=== PATIENT | female | born 2000 | race Two or more races ===

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

== ENCOUNTER 2018-05-13 11:22 | Emergency (ER) | payer MEDICAID, OTHER ==
[~2018-05-13] VITALS: Ht 157.5 cm; Wt 95.3 kg
[~2018-05-13 11:22] MED LIST changes: +CLINDAMYCIN HC150 MG ORAL
[2018-05-13] MEDS ORDERED: NKM (11:37)
[2018-05-13 11:43] VITALS: BP 120/62
--- NOTE | 2018-05-13 11:44 | NUR ---
ED Nurse Note: Pt from c/o abd pain with N/V since this morning. Denies diarrhea or constipation. No othe rmedical hx Pt is AAO x x4, ambulatory with unlabored breathing. VSS.
--- NOTE | 2018-05-13 11:55 | NUR ---
ED Nurse Note: Dr Swanson at the bed side.
[2018-05-13] MEDS ORDERED: Lidocaine 2% Visc 15ml soln ORAL ONE (12:00)
[2018-05-13] MEDS ORDERED: Mylanta II UD 30ml ORAL ONE (12:00)
[2018-05-13] MEDS ORDERED: Dicyclomine HCl 10mg/5ml oral soln ORAL ONE (12:00)
[2018-05-13] MEDS ORDERED: RANITIDINE HCL150 MG ORAL (12:28)
[2018-05-13] MEDS ORDERED: ONDANSETRON ODT4 MG BC (12:28)
[2018-05-13 12:40] VITALS: BP 112/66
--- NOTE | 2018-05-13 12:40 | NUR ---
ER Nurse Note: Pt cleared for discharge by ER MD. DC instructions/prescription was gien and explained to pt and verbalized understanding of teachings. All medical devices such as ID band removed. Pt AAO x4, ambulatory and left with all personal belongings.
--- NOTE | 2018-05-13 14:14 | Emergency Room Report ---
History of Present Illness General Chief Complaint: Abdominal Pain Source: Patient Present Illness HPI 18-year-old female presents ED for evaluation. Patient complaining of abdominal pain with nausea and vomiting. Started this morning. Pain is epigastric, burning, 7 out of 10, nonradiating. Denies chest pain or shortness of breath. Denies any diarrhea. Denies fevers or chills. No other aggravating relieving factors. Denies any other associated symptoms Allergies: Coded Allergies: No Known Allergies (Unverified , 05/05/12) Patient History Past Medical History: none Past Surgical History: none Pertinent Family History: none Social History: Denies: smoking, alcohol use, drug use Last Menstrual Period: 04/24/18 Now: No Immunizations: UTD Reviewed Nursing Documentation: PMH: Agreed; PSxH: Agreed Nursing Documentation-PMH Past Medical History: No Stated History Review of Systems All Other Systems: negative except mentioned in HPI Physical Exam Vital Signs Date Time Temp Pulse Resp B/P (MAP) Pulse Ox O2 Delivery O2 Flow Rate FiO2 05/13/18 11:34 97.9 71 13 120/62 100 Room Air Sp02 EP Interpretation: reviewed, normal General Appearance: no apparent distress, alert, GCS 15, non-toxic Head: normocephalic Eyes: bilateral eye normal inspection, bilateral eye PERRL ENT: normal ENT inspection Neck: normal inspection Respiratory: chest non-tender, lungs clear, normal breath sounds, speaking full sentences Cardiovascular #1: regular rate, rhythm, no edema Gastrointestinal: normal bowel sounds, soft, non-distended, no guarding, no rebound, tenderness - epigastric Rectal: deferred Genitourinary: no CVA tenderness Musculoskeletal: normal inspection Neurologic: alert, oriented x3, responsive, motor strength/tone normal, sensory intact, speech normal Psychiatric: normal inspection Skin: normal inspection Lymphatic: normal inspection Medical Decision Making Diagnostic Impression: Primary Impression: Gastritis Qualified Codes: K29.00 - Acute gastritis without bleeding ER Course Hospital Course 18-year-old F presents to ED with epigastric pain with N/V. differential diagnosis: gastritis, SBO, cholecystits Clinical course Patient placed on stretcher. On park interpreter. After initial history, physical exam reveals female in no acute distress. There is some mild epigastric tenderness. No guarding or rebound. No active vomiting. Patient appears comfortable. Blood pressure okay. Vital stable. Discussed findings with patient. Father at bedside admits that patient eats spicy chips on regular basis Given Zofran IM here, given GI cocktail and Pepcid. Safe for discharge close outpatient follow-up. We'll provide referrals I feel this is a highly complex case requiring extensive working including EKG/ Rhythm strip, Xray/CT/US, Blood/urine lab work, repeat exams while in ED, and administration of strong opiates/narcotics for pain control, admission to hospital or close patient follow up. Diagnosis - gastritis Stable and discharged to home with prescriptions for Zantac, zofran. Followup with PMD. Return to ED if symptoms recur or worsen Last Vital Signs Date Time Temp Pulse Resp B/P (MAP) Pulse Ox O2 Delivery O2 Flow Rate FiO2 05/13/18 12:40 98.4 85 20 112/66 99 Room Air Status: improved Disposition: HOME, SELF-CARE Condition: Stable Scripts Ondansetron Odt* (ZOFRAN ODT*) 4 Mg Tab.rapdis 4 MG BC EVERY 8 HOURS, #10 TAB 0 Refills Prov: Kris Swanson MD 05/13/18 Ranitidine Hcl* (ZANTAC*) 150 Mg Tablet 150 MG ORAL TWICE A DAY, #30 TAB Prov: Kris Swanson MD 05/13/18 Patient Instructions: Gastritis, Adult, Lwgq-[id number] Kris Swanson MD May 13, 2018 14:14
== END 2018-05-13 12:40 | disposition home or self-care (01) ==
LOC: EMR 11:57
DX: K29.70 Gastritis, unspecified, without bleeding (principal)
CPT/HCPCS: 96372; 99283; J2405

== ENCOUNTER 2018-05-17 03:18 | Emergency (ER) | payer OTHER ==
[~2018-05-17] VITALS: Ht 157.5 cm; Wt 95.3 kg
[~2018-05-17 03:18] MED LIST changes: +NKM; +ONDANSETRON ODT4 MG BC; +RANITIDINE HCL150 MG ORAL
[2018-05-17 03:29] VITALS: BP 123/73
--- NOTE | 2018-05-17 03:31 | NUR ---
ED Nurse Note: pt walked in due to hives on most part of the body, started 0200. no active wounds noted. pt is alert and oriented times 4 with stable gait. pt S1, S2 notes and heart tones are within normal limts, pt lung sounds are clear on all qudrants with no respritory distress noted.
[2018-05-17] MEDS ORDERED: BENADRYL25 MG ORAL (03:36)
[2018-05-17] MEDS ORDERED: PREDNISONE20 MG ORAL (03:36)
--- NOTE | 2018-05-17 03:37 | Emergency Room Report ---
History of Present Illness General Chief Complaint: Allergic Reaction Source: Patient Present Illness HPI Is a 18-year-old female with no past medical history. She presents with chief complaint of allergic reaction. Unknown etiology. She woke up itching with a rash throughout her body. She was here several days ago and prescribe H2 mundo and Zofran. She had not taking this medicine for over 2 days now. Denies any fever chills denies any nausea vomiting. No new medication. No new food or soap or detergent. No respiratory issue. Allergies: Coded Allergies: No Known Allergies (Unverified , 05/05/12) Patient History Past Medical History: see triage record, old chart reviewed Past Surgical History: none Pertinent Family History: none Social History: Denies: smoking Last Menstrual Period: 04/24/2018 Now: No Immunizations: other Reviewed Nursing Documentation: PMH: Agreed; PSxH: Agreed Nursing Documentation-PMH Past Medical History: No Stated History Review of Systems Eye: Denies: eye pain, blurred vision ENT: Denies: ear pain, nose congestion, throat swelling Respiratory: Denies: cough, shortness of breath Cardiovascular: Denies: chest pain, palpitations Gastrointestinal: Denies: abdominal pain, diarrhea, nausea, vomiting Musculoskeletal: Denies: back pain, joint pain Skin: Reports: rash Neurological: Denies: headache, numbness Endocrine: Denies: increased thirst, increased urine Hematologic/Lymphatic: Denies: easy bruising All Other Systems: negative except mentioned in HPI Physical Exam Vital Signs Date Time Temp Pulse Resp B/P (MAP) Pulse Ox O2 Delivery O2 Flow Rate FiO2 05/17/18 03:22 98.1 99 16 123/73 Room Air 05/17/18 03:29 99 99 vitals normal Sp02 EP Interpretation: reviewed, normal General Appearance: well appearing, no apparent distress, alert Head: normocephalic, atraumatic Eyes: bilateral eye PERRL, bilateral eye EOMI ENT: hearing grossly normal, normal pharynx Neck: full range of motion, supple, no meningismus Respiratory: chest non-tender, lungs clear, normal breath sounds Cardiovascular #1: regular rate, rhythm, no murmur Gastrointestinal: normal bowel sounds, non tender, no mass, no organomegaly, no bruit, non-distended Musculoskeletal: back normal, gait/station normal, normal range of motion Neurologic: alert, oriented x3 Psychiatric: mood/affect normal Skin: warm/dry, other - Diffuse urticaria Medical Decision Making Diagnostic Impression: Primary Impression: Allergic reaction Qualified Codes: T78.40XA - Allergy, unspecified, initial encounter ER Course Patient with allergic reaction. Unknown etiology. Unlikely to be new medications because she hasn't taken it for 2 days. No respiratory issue. We' ll discharge home. Last Vital Signs Date Time Temp Pulse Resp B/P (MAP) Pulse Ox O2 Delivery O2 Flow Rate FiO2 05/17/18 03:29 99 16 Room Air 99 05/17/18 03:29 98.1 123/73 99 Status: improved Disposition: HOME, SELF-CARE Condition: Stable Scripts Prednisone* (PREDNISONE*) 20 Mg Tablet 40 MG ORAL DAILY, #6 TAB Prov: Vignesh Patel MD 05/17/18 Diphenhydramine Hcl* (BENADRYL*) 25 Mg Capsule 500 MG ORAL Q6H PRN for Itching, #30 CAP Prov: Vignesh Patel MD 05/17/18 Patient Instructions: Allergies Additional Instructions: Follow-up with your DrFeliciano in 2-3 days for recheck. Stop the new medications were reviewed received few days ago. Return if worse. Vignesh Patel MD May 17, 2018 03:37
[2018-05-17] MEDS ORDERED: Solu-MEDROL 125mg Inj IVP ONE (03:45)
[2018-05-17] MEDS ORDERED: DiphenhydrAMINE 50mg/ml Inj IVP ONE (03:45)
[2018-05-17 04:09] VITALS: BP 125/67
--- NOTE | 2018-05-17 04:10 | NUR ---
ER DISCHARGE NOTE: Patient is cleared to be discharged per ERMD, pt is aox4, on room air, with stable vital signs. pt was given dc and prescription instructions, pt was able to verbalize understanding, pt id band and iv site removed without complications. pt is able to ambulate with steady gait. pt took all belongings.
== END 2018-05-17 04:11 | disposition home or self-care (01) ==
LOC: EMR 03:39
DX: T78.40XA Allergy, unspecified, initial encounter (principal); X58.XXXA Exposure to other specified factors, initial encounter; R21 Rash and other nonspecific skin eruption
CPT/HCPCS: 96374; 96375; 99284; J1200; J2930

== ENCOUNTER 2018-08-04 21:31 | Emergency (ER) | payer OTHER ==
[~2018-08-04] VITALS: Ht 160 cm; Wt 99.8 kg
[~2018-08-04 21:31] MED LIST changes: +BENADRYL25 MG ORAL; +PREDNISONE20 MG ORAL
[2018-08-04 21:51] VITALS: BP 117/67
--- NOTE | 2018-08-04 21:51 | NUR ---
ED Nurse Note: Pt arrived ED from home. c/o headache 11/04 for 2 days. Pt is A/O X4, vital signs stable at this time, waiting for orders.
[2018-08-04] MEDS ORDERED: DiphenhydrAMINE 50mg/ml Inj IVP ONE (22:00)
[2018-08-04] MEDS ORDERED: Metoclopramide 10mg/2ml Inj IVP ONE (22:00)
[2018-08-04] MEDS ORDERED: Ketorolac 30mg Inj IV ONE (22:00)
--- NOTE | 2018-08-04 22:07 | NUR ---
ED Nurse Note: Meds given as ordered.
--- NOTE | 2018-08-04 22:09 | NUR ---
ED Nurse Note: Pt was sent down for CT of head.
--- NOTE | 2018-08-04 22:20 | NUR ---
ED Nurse Note: Pt returned from CT of head.
--- NOTE | 2018-08-04 22:22 | Diagnostic Imaging Report ---
EXAM: CT Head Without Intravenous Contrast CLINICAL HISTORY: PAIN TECHNIQUE: Axial computed tomography images of the head/brain without intravenous contrast. CTDI is 70.53 mGy and DLP is 1383 mGy-cm. One or more of the following dose reduction techniques were used: automated exposure control, adjustment of the mA and/or kV according to patient size, use of iterative reconstruction technique. COMPARISON: Noncontrast head CT May 05, 2012 FINDINGS: Brain: Unremarkable. No hemorrhage. No significant white matter disease. No edema. Ventricles: Unremarkable. No ventriculomegaly. Bones/joints: Unremarkable. No acute fracture. Soft tissues: Unremarkable. Sinuses: Unremarkable as visualized. No acute sinusitis. Mastoid air cells: Unremarkable as visualized. No mastoid effusion. IMPRESSION: Normal head/brain CT.
[2018-08-04] MEDS ORDERED: IBUPROFEN600 MG ORAL (22:25)
--- NOTE | 2018-08-04 22:26 | Emergency Room Report ---
History of Present Illness General Chief Complaint: Nausea Source: Patient Present Illness HPI This is a 18-year-old female with history of frequent headaches. She said she get him every 2 weeks or so. Never had any workup. Complaining of headache for the last couple days. Throbbing in nature. Does have photophobia. Does have nausea and vomiting. No fever chills. Pain is 8 out of 10. Gradual onset. Allergies: Coded Allergies: No Known Allergies (Unverified , 05/05/12) Patient History Past Medical History: none, see triage record, old chart reviewed Past Surgical History: none Pertinent Family History: none Social History: Denies: smoking Last Menstrual Period: 07/30 Now: No Immunizations: UTD, other Reviewed Nursing Documentation: PMH: Agreed; PSxH: Agreed Nursing Documentation-PMH Past Medical History: No Stated History Review of Systems Eye: Denies: eye pain, blurred vision ENT: Denies: ear pain, nose congestion, throat swelling Respiratory: Denies: cough, shortness of breath Cardiovascular: Denies: chest pain, palpitations Gastrointestinal: Denies: abdominal pain, diarrhea, nausea, vomiting Musculoskeletal: Denies: back pain, joint pain Skin: Denies: rash Neurological: Reports: headache; Denies: numbness Endocrine: Denies: increased thirst, increased urine Hematologic/Lymphatic: Denies: easy bruising All Other Systems: negative except mentioned in HPI Physical Exam Vital Signs Date Time Temp Pulse Resp B/P (MAP) Pulse Ox O2 Delivery O2 Flow Rate FiO2 08/04/18 21:35 97.5 77 18 97 Room Air vitals unremarkable Sp02 EP Interpretation: reviewed, normal General Appearance: well appearing, no apparent distress, alert, obese Head: normocephalic, atraumatic Eyes: bilateral eye PERRL, bilateral eye EOMI ENT: hearing grossly normal, normal pharynx Neck: full range of motion, supple, no meningismus Respiratory: chest non-tender, lungs clear, normal breath sounds Cardiovascular #1: regular rate, rhythm, no murmur Gastrointestinal: normal bowel sounds, non tender, no mass, no organomegaly, no bruit, non-distended Musculoskeletal: back normal, gait/station normal, normal range of motion Psychiatric: mood/affect normal Skin: warm/dry Medical Decision Making Diagnostic Impression: Primary Impression: Headache Qualified Codes: R51 - Headache Additional Impression: Drug induced akathisia ER Course Patient presents with headache. Most likely migrainous in nature. No evidence of any bleed, meningitis, or neoplastic process. Patient became very anxious and panicky after receiving Reglan. This is most likely drug-induced akathisia. Resolved after getting Benadryl. We'll discharge home. CT/MRI/US Diagnostic Results CT/MRI/US Diagnostic Results : Imaging Test Ordered: CT head Impression negative per radiologist Last Vital Signs Date Time Temp Pulse Resp B/P (MAP) Pulse Ox O2 Delivery O2 Flow Rate FiO2 08/04/18 21:35 97.5 77 18 97 Room Air Status: improved Disposition: HOME, SELF-CARE Condition: Stable Scripts Ibuprofen* (MOTRIN*) 600 Mg Tablet 600 MG ORAL THREE TIMES A DAY, #30 TAB 0 Refills Prov: Vignesh Patel MD 08/04/18 Referrals: [facility],REFERRING (PCP) Additional Instructions: Follow-up with your doctor in 7 days. Return if symptom worsen. Vignesh Patel MD August 04, 2018 22:26
[2018-08-04 22:49] VITALS: BP 113/65
--- NOTE | 2018-08-04 22:49 | NUR ---
ER DISCHARGE NOTE: Patient is cleared to be discharged per Dr. Patel. Pt is feeling better at this time. Pt is aox 4 on room air with stable vital signs. Pt was given dc and prescription instructions and was able to verbalize understanding. Pt ID band and IV site removed without complications. Pt is able to ambulate with steady gait and took all belongings. Accompanied by her .
== END 2018-08-04 22:49 | disposition home or self-care (01) ==
LOC: EMR 22:04
DX: R51 Headache (principal); G25.71 Drug induced akathisia; R11.2 Nausea with vomiting, unspecified
CPT/HCPCS: 70450; 96361; 96374; 96375; 99284; J1200; J1885; J2765

== ENCOUNTER 2019-05-13 11:05 | Emergency (ER) | payer MEDICAID, OTHER ==
[~2019-05-13] VITALS: Ht 160 cm; Wt 103.4 kg
[2019-05-13] MEDS ORDERED: Mylanta II UD 30ml ORAL ONE (11:45)
[2019-05-13] MEDS ORDERED: Lidocaine 2% Visc 15ml soln ORAL ONE (11:45)
[2019-05-13 12:04] LABS: HEMATOCRIT 42.6 % (37.0-47.0); HEMOGLOBIN 14.5 G/DL (12.0-16.0); MEAN CORPUSCULAR VOLUME 89 FL (80-99); PLATELET COUNT 183 K/UL (150-450); RED BLOOD COUNT 4.79 M/UL (4.20-5.40); RED CELL DISTRIBUTION WIDTH 12.5 % (11.6-14.8); WHITE BLOOD COUNT 13.4 K/UL (4.8-10.8)
[2019-05-13 12:05] LABS: APPEARANCE,URINE CLEAR; BILIRUBIN, URINE NEGATIVE (NEGATIVE); COLOR,URINE PALE YELLOW; GLUCOSE, URINE (UA) NEGATIVE (NEGATIVE); KETONES,URINE NEGATIVE (NEGATIVE); LEUKOCYTE ESTERASE ,URINE NEGATIVE (NEGATIVE); NITRITE,URINE NEGATIVE (NEGATIVE); PH,URINE 6.5 (4.5-8.0); PROTEIN,URINE NEGATIVE (NEGATIVE); UROBILINOGEN,URINE NORMAL MG/DL (0.0-1.0)
--- NOTE | 2019-05-13 12:06 | NUR ---
ED Nurse Note: pt relates abd pain with n/v/d x 2 days. relates last bm this am. no active vomiting.
--- NOTE | 2019-05-13 12:08 | NUR ---
ED Nurse Note: pt aware to remain npo except for meds.
[2019-05-13 12:22] LABS: ANION GAP 9 mmol/L (5-15); BLOOD UREA NITROGEN 9 mg/dL (7-18); CALCIUM 8.6 MG/DL (8.5-10.1); CARBON DIOXIDE 27 MMOL/L (21-32); CHLORIDE 107 MMOL/L (98-107); CREATININE 0.8 MG/DL (0.55-1.30); SODIUM 143 MMOL/L (136-145)
[2019-05-13 12:27] LABS: ALANINE AMINOTRANSFERASE 25 U/L (12-78); ALBUMIN 3.7 G/DL (3.4-5.0); ALBUMIN/GLOBULIN RATIO 1.1 (1.0-2.7); ALKALINE PHOSPHATASE 69 U/L (46-116); ASPARTATE AMINO TRANSFERASE 22 U/L (15-37); BILIRUBIN,TOTAL 0.5 MG/DL (0.2-1.0)
--- NOTE | 2019-05-13 13:47 | Emergency Room Report ---
History of Present Illness General Chief Complaint: Abdominal Pain Source: Patient Present Illness HPI Patient with abdominal pain that began this morning. She also has nausea. She took [place] and that did not help. Epigastric. Pain rated 10/10. Burning, aching pressure which is constant. She feels nausea without vomiting. There is no diarrhea. There is no dysuria. Last menstruation was normal. Able to tolerate oral intake. No melena or diarrhea. She has never had this pain before. Last menstruation April 20. No fevers or chills. No upper respiratory symptoms. Mom had gallstones when she was . She was 36 at that time. Allergies: Coded Allergies: No Known Allergies (Unverified , 05/05/12) Patient History Past Medical History: see triage record Social History: Denies: smoking, alcohol use, drug use Social History Narrative With mom Last Menstrual Period: 04/20/19 Nursing Documentation-[facility] Past Medical History: No Stated History Review of Systems All Other Systems: negative except mentioned in HPI Physical Exam Vital Signs Date Time Temp Pulse Resp B/P (MAP) Pulse Ox O2 Delivery O2 Flow Rate FiO2 05/13/19 11:10 97.7 76 18 115/77 (90) 100 Room Air Sp02 EP Interpretation: reviewed, normal General Appearance: well appearing, no apparent distress, GCS 15 Head: normocephalic, atraumatic Eyes: bilateral eye normal inspection, bilateral eye PERRL ENT: moist mucus membranes Neck: supple Respiratory: lungs clear, normal breath sounds Cardiovascular #1: regular rate, rhythm Cardiovascular #2: 2+ radial (R) Gastrointestinal: normal inspection, normal bowel sounds, soft, no mass, non- distended, no guarding, no rebound, tenderness - Epigastric, other - No right lower quadrant pain Genitourinary: no CVA tenderness Musculoskeletal: back normal, normal range of motion, gait/station normal Neurologic: alert, oriented x3, grossly normal Psychiatric: mood/affect normal Skin: warm/dry, other - Minimal acne Medical Decision Making Diagnostic Impression: Primary Impression: Epigastric pain Additional Impression: Leukocytosis Qualified Codes: D72.828 - Other elevated white blood cell count ER Course Patient presents with epigastric pain that began this morning. Differential includes gastritis, pancreatitis, atypical appendicitis, reflux, UTI amongst others. Evaluation with labs. Imaging not indicated at this time. Treatment with IV hydration, Tylenol, Mylanta, viscous lidocaine and Pepcid. Repeated evaluation indicated. Gallstones extremely unlikely. Leukocytosis noted. Patient reevaluated at 1335. Pain improved. Abdomen is soft and no guarding. Right lower quadrant is not tender. Based on clinical exam and history appendicitis is doubted. Abdomen is nonsurgical and pain is nearly resolved. Discussed findings with patient and mom. Discussed outpatient observation. Discussed treatment plan. Patient stable for outpatient observation and treatment. Laboratory Tests Test 05/13/19 11:30 White Blood Count 13.4 K/UL (4.8-10.8) H Red Blood Count 4.79 M/UL (4.20-5.40) Hemoglobin 14.5 G/DL (12.0-16.0) Hematocrit 42.6 % (37.0-47.0) Mean Corpuscular Volume 89 FL (80-99) Mean Corpuscular Hemoglobin 30.3 PG (27.0-31.0) Mean Corpuscular Hemoglobin Concent 34.1 G/DL (32.0-36.0) Red Cell Distribution Width 12.5 % (11.6-14.8) Platelet Count 183 K/UL (150-450) Mean Platelet Volume 11.0 FL (6.5-10.1) H Neutrophils (%) (Auto) % (45.0-75.0) Lymphocytes (%) (Auto) % (20.0-45.0) Monocytes (%) (Auto) % (1.0-10.0) Eosinophils (%) (Auto) % (0.0-3.0) Basophils (%) (Auto) % (0.0-2.0) Differential Total Cells Counted 100 Neutrophils % (Manual) 87 % (45-75) H Lymphocytes % (Manual) 8 % (20-45) L Monocytes % (Manual) 4 % (1-10) Eosinophils % (Manual) 1 % (0-3) Basophils % (Manual) 0 % (0-2) Band Neutrophils 0 % (0-8) Platelet Estimate Adequate Platelet Morphology Normal Red Blood Cell Morphology Normal Urine Color Pale yellow Urine Appearance Clear Urine pH 6.5 (4.5-8.0) Urine Specific [place] 1.015 (1.005-1.035) Urine Protein Negative (NEGATIVE) Urine Glucose (UA) Negative (NEGATIVE) Urine Ketones Negative (NEGATIVE) Urine Blood Negative (NEGATIVE) Urine Nitrite Negative (NEGATIVE) Urine Bilirubin Negative (NEGATIVE) Urine Urobilinogen Normal MG/DL (0.0-1.0) Urine Leukocyte Esterase Negative (NEGATIVE) Urine HCG, Qualitative Negative (NEGATIVE) Sodium Level 143 MMOL/L (136-145) Potassium Level 4.0 MMOL/L (3.5-5.1) Chloride Level 107 MMOL/L (98-107) Carbon Dioxide Level 27 MMOL/L (21-32) Anion Gap 9 mmol/L (5-15) Blood Urea Nitrogen 9 mg/dL (7-18) Creatinine 0.8 MG/DL (0.55-1.30) Estimate Glomerular Filtration Rate > 60 mL/min (>60) Glucose Level 96 MG/DL (74-106) Calcium Level 8.6 MG/DL (8.5-10.1) Total Bilirubin 0.5 MG/DL (0.2-1.0) Aspartate Amino Transferase (AST) 22 U/L (15-37) Alanine Aminotransferase (ALT) 25 U/L (12-78) Alkaline Phosphatase 69 U/L (46-116) Total Protein 7.2 G/DL (6.4-8.2) Albumin 3.7 G/DL (3.4-5.0) Globulin 3.5 g/dL Albumin/Globulin Ratio 1.1 (1.0-2.7) Lipase 103 U/L (73-393) Last Vital Signs Date Time Temp Pulse Resp B/P (MAP) Pulse Ox O2 Delivery O2 Flow Rate FiO2 05/13/19 14:23 76 18 114/72 100 Room Air 05/13/19 11:10 97.7 Status: improved Disposition: HOME, SELF-CARE Condition: Improved Scripts Mag Hydrox/Aluminum Hyd/Simeth (Mylanta Maximum Strength Liq) 355 Ml Oral.susp 30 ML PO Q6HR PRN for abdominal pain, #240 ML Prov: Mark Bagley MD 05/13/19 Famotidine* (Pepcid 20mg tablet*) 20 Mg Tablet 20 MG ORAL DAILY, #20 TAB 0 Refills Prov: Mark Bagley MD 05/13/19 Acetaminophen (Tylenol) 325 Mg Tablet 650 MG ORAL Q6H PRN for Prn Pain/Headache/Temp > 101, #20 TAB 0 Refills Prov: Mark Bagley MD 05/13/19 Referrals: NON PHYSICIAN (PCP) Mark Bagley MD May 13, 2019 13:47
[2019-05-13] MEDS ORDERED: FAMOTIDINE20 MG ORAL (13:51)
[2019-05-13] MEDS ORDERED: MYLANTA MAXIMU355 ML PO (13:51)
[2019-05-13] MEDS ORDERED: TYLENOL325 MG ORAL (13:51)
[2019-05-13 14:23] VITALS: BP 114/72
--- NOTE | 2019-05-13 14:26 | NUR ---
ED Nurse Note: Pt cleared by health care Provider for discharge. DC instructions/prescription was given and explained to pt and verbalized understanding of teachings. All medical devices such as ID band removed. Pt is AAO x4, ambulatory and left with all personal belongings. iv out intactly.
== END 2019-05-13 14:26 | disposition home or self-care (01) ==
LOC: EMR 13:27
DX: R10.13 Epigastric pain (principal); D72.828 Other elevated white blood cell count
CPT/HCPCS: 36415; 80053; 81003; 81025; 83690; 85007; 85025; 96361; 96374; J7030; S0028; Z7502; 99284

== ENCOUNTER 2020-04-02 14:02 | Emergency (ER) | payer MEDICAID, OTHER ==
[~2020-04-02] VITALS: Ht 157.5 cm; Wt 90.7 kg
[~2020-04-02 14:02] MED LIST changes: +FAMOTIDINE20 MG ORAL; +MYLANTA MAXIMU355 ML PO; +TYLENOL325 MG ORAL
--- NOTE | 2020-04-02 14:53 | Emergency Room Report ---
History of Present Illness General Chief Complaint: Lower Extremity Injury Source: Patient Present Illness HPI 20-year-old female with no significant past medical history here complaining of right ankle twisting injury that occurred yesterday as going down the stairs. Obvious swelling noted lateral and medial malleolus. Patient has full range of motion of the toes, and is neurovascularly intact. Denies other injuries. Treatment provided Toradol radiation. Already has an Randal wrap applied. Has not taken medication for symptom relief. Denies . Allergies: Coded Allergies: No Known Allergies (Unverified , 05/05/12) COVID-19 Screening Contact w/high risk pt: No Experienced COVID-19 symptoms?: No COVID-19 Testing performed RENTAL REPRESENTATIVE: No Patient History Past Medical History: see triage record Past Surgical History: none Pertinent Family History: none Now: No Immunizations: UTD Reviewed Nursing Documentation: PMH: Agreed; PSxH: Agreed Nursing Documentation-PMH Past Medical History: No Stated History Review of Systems All Other Systems: negative except mentioned in HPI Physical Exam Vital Signs Date Time Temp Pulse Resp B/P (MAP) Pulse Ox O2 Delivery O2 Flow Rate FiO2 04/02/20 14:14 99.0 110 15 123/73 (90) 96 Room Air Sp02 EP Interpretation: reviewed, normal General Appearance: no apparent distress, alert, GCS 15, non-toxic Head: normocephalic, atraumatic Eyes: bilateral eye normal inspection, bilateral eye PERRL ENT: hearing grossly normal, normal pharynx, no angioedema, normal voice Neck: full range of motion, supple/symm/no masses Respiratory: chest non-tender, lungs clear, normal breath sounds, no rhonchi, no respiratory distress, no retraction, no wheezing, speaking full sentences Cardiovascular #1: no edema Cardiovascular #2: 2+ dorsalis pedis (R), 2+ dorsalis pedis (L) Gastrointestinal: no mass Musculoskeletal: back normal, no calf tenderness, pelvis stable, non-tender, swelling - Right lateral medial malleolus Neurologic: alert, motor strength/tone normal, oriented x3, sensory intact, responsive, speech normal Psychiatric: judgement/insight normal, memory normal, mood/affect normal, no suicidal/homicidal ideation Skin: no rash Lymphatic: no adenopathy Medical Decision Making PA Attestation All diagnoses and treatment plans were reviewed and discussed with my supervising physician Dr. Cardozo Diagnostic Impression: Primary Impression: Ankle sprain ER Course 20-year-old female with no significant past medical history here complaining of right ankle twisting injury that occurred yesterday as going down the stairs. Obvious swelling noted lateral and medial malleolus. Patient has full range of motion of the toes, and is neurovascularly intact. Denies other injuries. Treatment provided Toradol radiation. Already has an Randal wrap applied. Has not taken medication for symptom relief. Denies . Ddx considered but are not limited to: ankle sprain, ankle strain, ankle fracture, ankle contusion Vital signs: are WNL, pt. is afebrile H&PE are most consistent with: right ankle sprain ORDERS: ankle X-ray, robaxin, motrin ED INTERVENTIONS: None required at this time. DISCHARGE: At this time pt. is stable for d/c to home. Will provide printed patient care instructions, and any necessary prescriptions. Care plan and follow up instructions have been discussed with the patient prior to discharge. Take medication as directed, follow primary care provider, if worsening symptom return to the emergency room continue applying the Randal wrap. Other X-Ray Diagnostic Results Other X-Ray Diagnostic Results : X-Ray ordered: Right ankle # of Views/Limited Vs Complete: 3 View Indication: Pain EP Interpretation: Yes PA Xray: Interpretation reviewed, by supervising MD, and agrees with findings. Interpretation: no dislocation, no fractures Impression: No acute disease Electronically Signed by: Dixon Castillo PA-C Last Vital Signs Date Time Temp Pulse Resp B/P (MAP) Pulse Ox O2 Delivery O2 Flow Rate FiO2 04/02/20 14:14 99.0 110 15 123/73 (90) 96 Room Air Disposition: HOME, SELF-CARE Condition: Stable Scripts Methocarbamol* (ROBAXIN-500*) 500 Mg Tablet 500 MG ORAL TID PRN for For Pain, #15 TAB 0 Refills Prov: Dixon Sommer 04/02/20 Ibuprofen* (MOTRIN*) 600 Mg Tablet 600 MG ORAL Q8H PRN for FOR PAIN, #20 TAB 0 Refills Prov: Dixon Sommer 04/02/20 Patient Instructions: Ankle Sprain Additional Instructions: Take medication as directed, follow primary care provider, if worsening symptoms return to the emergency room Dixon Sommer Apr 02, 2020 14:53
[2020-04-02] MEDS ORDERED: ROBAXIN-500MG ORAL (14:54)
[2020-04-02] MEDS ORDERED: IBUPROFEN600 M1 ORAL (14:54)
[2020-04-02 15:00] VITALS: BP 121/68
--- NOTE | 2020-04-02 16:29 | Diagnostic Imaging Report ---
Indication: Trauma, pain Technique: 3 views of the right ankle Comparison: none Findings: There is lateral soft tissue swelling. No acute fracture. No dislocation. The joint spaces are preserved. Impression: Negative
== END 2020-04-02 16:00 | disposition home or self-care (01) ==
LOC: EMR 15:05
DX: S93.401A Sprain of unspecified ligament of right ankle, initial encounter (principal); X50.1XXA Overexertion from prolonged static or awkward postures, initial encounter; Y93.89 Activity, other specified; Y92.9 Unspecified place or not applicable
CPT/HCPCS: 73610; Z7502; 99283